=== PATIENT | female | born 2000 | race Caucasian/White ===

== ENCOUNTER 2022-06-06 16:27 | Emergency (ER) | payer OTHER ==
[2022-06-06] MEDS ORDERED: diphenhydrAMINE 50 MG/ML VIAL ONE (17:30)
[2022-06-06] MEDS ORDERED: Acetaminophen 500 MG TAB ONE (17:30)
[2022-06-06] MEDS ORDERED: Metoclopramide HCl 10 MG/2 ML VIAL ONE (17:30)
== END 2022-06-06 19:10 | disposition home or self-care (01) ==
LOC: CSHERS 16:27
DX: R51.9 Headache, unspecified (principal); M62.838 Other muscle spasm
CPT/HCPCS: 96374; 96375; J1200; J2765